=== PATIENT | male | born 1955 ===

== ENCOUNTER → 2018-08-16 | Day surgery (SDC) | payer OTHER ==
[~2018-08-16] MED LIST: CEFADROXIL500 MG PO; RAMIPRIL2.5 MG PO; TRAM1TAB98 PO
== END | disposition home or self-care (01) ==
LOC: ADM 08-12 15:00 → CIR.AMB 08:15
DX: M65.312 Trigger thumb, left thumb (principal)

== ENCOUNTER 2021-08-14 11:30 | Inpatient (IN) | payer OTHER ==
[~2021-08-14] VITALS: Ht 177.8 cm; Wt 99.8 kg
[2021-08-14] MEDS ORDERED: NORVASC2.5 M1 PO (13:06)
[2021-08-14] MEDS ORDERED: TOPROL XL50 M1 PO (13:06)
[2021-08-14] MEDS ORDERED: ADULT LOW DOSE81 M1 PO (13:06)
[2021-08-19] MEDS ORDERED: DICLOFENAC POTA50 MG (10:39)
[2021-08-19] MEDS ORDERED: ROSUVASTATIN CA10 MG (10:45)
[2021-08-19] MEDS ORDERED: FAMOTIDINE40 MG (10:45)
[2021-08-19] MEDS ORDERED: INDAPAMIDE1.25 MG (10:45)
[2021-08-19] MEDS ORDERED: MAXIMUM D3325 MCG (10:45)
[2021-08-21] MEDS ORDERED: XARELTO10 MG PO (06:29)
[2021-08-21] MEDS ORDERED: INTEGRA PLUS C1 EACH PO (06:29)
[2021-08-21] MEDS ORDERED: OXYC1TAB9 PO (06:30)
[2021-08-21] MEDS ORDERED: BACTRIM DS TAB1 EACH PO (06:30)
== END 2021-08-21 16:42 | DRG 470 ==
LOC: O/R 08-19 05:30 → SURH 08-19 05:30 → SURG 08-19 15:13 → SURH 08-19 15:22
PROVIDERS: ADMIT Orthopaedic Surgery Sports Medicine; ATTEND Orthopaedic Surgery Sports Medicine
PROC: 0SRD0J9 Replacement of Left Knee Joint with Synthetic Substitute, Cemented, Open Approach (ICD-10-PCS; principal; 2021-08-19 07:00)
DX: M17.12 Unilateral primary osteoarthritis, left knee (principal); Z20.822 Contact with and (suspected) exposure to COVID-19